=== PATIENT | female | born 1990 | race Caucasian/White ===

== ENCOUNTER → 2021-12-29 12:25 | Outpatient (CLI) | payer BC, SELFPAY ==
--- NOTE | ~2021-12-29 | US_ITS ---
EXAMINATION: US transvaginal DATE: 12/29/2021 13:05 INDICATION: Pelvic pain Comparison:No prior studies for comparison. TECHNIQUE: Multiple transabdominal and endovaginal sonographic images of the pelvis performed. FINDINGS: The uterus measures 7.2 x 3.4 x 4.2 cm. There is an IUD in the endometrium. Endometrium kunal sures 7 mm. The right ovary measures 6.8 x 4.8 x 5.4 cm and the left ovary measures 3 x 1.5 x 2.4 cm. In the righ t ovary there is a 6.2 x 4.3 x 4.7 cm cyst. There are small follicles in each ovary. Normal doppler s ignal in both ovaries. There is no free fluid in the pelvis. There are no abnormal masses seen on either side. IMPRESSION: 1. Right ovarian cyst measuring 6.2 cm. Reviewed, dictated and finalized at location A.
== END ==
PROVIDERS: PCP Nurse Practitioner; Visit Provider Nurse Practitioner
DX: R10.2 Pelvic and perineal pain (principal); N83.201 Unspecified ovarian cyst, right side
CPT/HCPCS: 76830

== ENCOUNTER → 2022-02-13 09:33 | Outpatient (CLI) | payer BC, SELFPAY ==
--- NOTE | ~2022-02-13 | US_ITS ---
EXAMINATION: US transvaginal DATE: 02/13/2022 10:07 INDICATION: Follow-up right ovarian cyst Comparison:Ultrasound dated 12/29/2021 TECHNIQUE: Multiple transabdominal and endovaginal sonographic images of the pelvis performed. FINDINGS: The uterus measures 8.4 x 3.9 x 4.9 cm. There is a slightly hyperechoic mass at the fundus of the uterus measuring 2.2 x 1.9 x 2.1 cm, consistent with a uterine fibroid. There is an IUD in the endometrium. The endometrial complex measures 7 mm. The right ovary measures 3.7 x 2 x 3.5 cm and the left ovary measures 5.3 x 4.4 x 6.1 cm. Interval re solution of right ovarian cyst since prior examination. There is a new complicated cyst of the left o vary containing low level internal echoes along the lateral margin. This cyst measures 4.4 x 4.9 x 4. 2 cm. Normal doppler signal in both ovaries. There is no free fluid in the pelvis. There are no abnormal masses seen on either side. IMPRESSION: 1. New complicated left ovarian cyst measuring 4.9 cm maximum dimension. 2: Uterine fibroid measuring 2.2 cm maximum dimension. Reviewed, dictated and finalized at location A. [employer]ICAL ENGINEERING TECHNICIAN
== END ==
PROVIDERS: PCP Obstetrics & Gynecology Gynecology; Visit Provider Obstetrics & Gynecology Gynecology
DX: N83.201 Unspecified ovarian cyst, right side (principal); N83.202 Unspecified ovarian cyst, left side; D25.9 Leiomyoma of uterus, unspecified
CPT/HCPCS: 76830

== ENCOUNTER → 2022-09-30 09:07 | Outpatient (CLI) | payer BC, SELFPAY ==
--- NOTE | ~2022-09-30 | US_ITS ---
EXAMINATION: US pelvic complete DATE: 09/30/2022 09:33 INDICATION: Left ovarian cyst. TECHNIQUE: Multiple transabdominal sonographic images of the pelvis were obtained. COMPARISON: Ultrasound 02/13/2022 FINDINGS: The uterus measures 8.5 x 3.3 x 4.2 cm. There is no free fluid in the pelvis. The endometrial complex measures 4 mm in thickness. There is a 2.1 cm mural fibroid. There is an intrauterine device in expe cted position. The right ovary measures 3.6 x 2.0 x 2.9 cm. The left ovary measures 2.6 x 2.2 x 2.0 c m. There is normal vascular flow in the ovaries. IMPRESSION: 1. Normal ovaries. 2. Intrauterine device in expected position. 3. Uterine fibroid. Reviewed, dictated and finalized at location E.
== END ==
PROVIDERS: PCP Obstetrics & Gynecology Gynecology; Visit Provider Obstetrics & Gynecology Gynecology
DX: N83.202 Unspecified ovarian cyst, left side (principal); D25.9 Leiomyoma of uterus, unspecified; Z97.5 Presence of (intrauterine) contraceptive device
CPT/HCPCS: 76856

== ENCOUNTER 2024-05-07 07:52 | Outpatient (CLI) | payer OTHER, SELFPAY ==
--- NOTE | 2024-05-12 13:58 | P.SLEEP_ITS ---
Sleep Study - Home Unattended Date of Study: 05/07/24 Ordering Provider: Edilberto Valdez MD Interpreting Provider: Carol Mcmillan, DO Home Sleep Study Type: Watch PAT Height: 1.65 m Weight: 88.451 kg Body Mass Index: 32.4 Neck Circumference (inches): 15 [place]: 11 Reason for Sleep Study Daytime hypersomnia Sleep History The patient is a 33-year-old female that had a sleep study ordered by her primary care physician for evaluation of sleep apnea. The patient admits to snoring loudly, excessive daytime sleepiness, interruptions in breathing while asleep and trouble maintaining sleep. She does choke or gasp at night. She denies having trouble breathing on her back. She does have morning headaches. She does have a dry or sore mouth / throat in the morning. She does have nocturnal heartburn. She denies nocturia. She denies having difficulty falling asleep. She does have difficulty returning to sleep if she wakes up throughout the night. She denies hypnotic or sedative use. She denies feeling anxious about sleep. She does feel tired or sleepy during the day. She does feel tired in the morning. She does have the urge to fall asleep during the day. She denies feeling drowsy while driving. He denies sleep paralysis, cataplexy and hypnagogic/ hypnopompic hallucinations. She denies clenching or grinding her teeth. She denies kicking or jerking her legs excessively. She denies having a restless feeling in her legs. She goes to bed at 10:00 p.m. on work days and at 10:30 p.m. on her days off. It takes her 45 minutes to fall asleep on her work days and 30 minutes on her days off. She gets 5 hours of sleep on her work days and 8 hours of sleep on her days off. Her sleep is a little more restorative on her days off. She denies taking any planned naps. She denies dream enactment behavior. She denies sleep walking. She consumes 3-4 cups of caffeinated beverage per day. She consumes 1 alcoholic beverage 1-2 nights per week. She denies tobacco use. She denies exercising on a regular basis. [facility] Past Medical History Medical History On correction drug therapy Hypersomnolence Encounter to establish care BMI 32.0-32.9,adult Family History Family History Father Cerebrovascular accident Brain tumor Social History Social History Smoking status: Former smoker Second hand tobacco smoke exposure: No Do You Feel Safe in your Home?: Yes Lack of Transportation: No Lack of Food: Never True Current Housing: I Have Housing Concerned About Future Housing: No Difficulty Paying Gas/Electric Bills: No Difficulty Paying for Meds: No Currently Unemployed: No Difficulty w/ Childcare or Family Care: No Additional living arrangements comments: significant other Occupation/Education: occupation Gender identity (if verbalized by the patient): Female Medications Home Medications ?Medication ?Instructions ?Recorded ?Confirmed ?Type zolpidem 10 mg tablet 10 mg PO QHS insomnia #2 tabs 04/17/24 04/17/24 Rx cholecalciferol (vitamin D3) 1,250 See Rx Instructions .Route 04/22/24 Rx mcg (50,000 unit) capsule .COMPLEX #10 caps cholecalciferol (vitamin D3) 50 50 mcg PO DAILY 04/22/24 History mcg (2,000 unit) capsule Sleep Procedure The sleep study was completed using [employer] a technically adequate device with seven channels: peripheral arterial tone, actigraphy, body position, snore, respiratory movement, pulse oximetry, sleep staging, and heart rate. Prior to using the device, the patient received verbal and written instructions for its application and was provided with the help desk phone number for additional telephonic instruction with 24-hour availability of qualified personnel to answer questions. The study was scored using CMS guidelines. Sleep Architecture The total recording time is 8 hrs, 7 min. The total sleep time is 7 hrs, 51 min. Sleep latency is 5 minutes. REM latency is minutes. The patient had 4 episodes of waking. Sleep architecture shows % deep sleep, % light sleep, and (as % Total Sleep Time) showed NREM (Light %; Deep %), and a % stage REM. The patient spent 77.9% of total sleep time in the supine position. Sleep efficiency was 96.71. Respiratory Analysis The overall AHI (pAHI 3%:) is 60.0. The central AHI is 1.6. The AHI was N/A in NREM and N/A in REM sleep. The AHI was 59.1 in Supine and 63.1 in Non-supine sleep. Percent of Mauro Hernández respirations is 0.0. Oximetry Data The oxygen desaturation index (EVA 4%:) is 42.7. The mean saturation is 93%, and the lowest saturation is 84%. Time spent with saturation < 88% is 5.7 minutes. Snoring Profile Snoring average intensity is 41 dB. The patient snored above 45 decibels for 33.6 minutes, 7.1% of sleep time. Cardiac Profile The average pulse rate is 87 beats per minutes. The lowest pulse rate is 55 bpm. The highest pulse rate reported is 121 bpm. Atrial fibrillation was not detected. Premature beats occur 0.3 per minute. Assessment and Plan Assessment and Plan (1) [place] (obstructive sleep apnea): Code(s): G47.33 - Obstructive sleep apnea (adult) (pediatric) Status: Acute Assessment and Plan: The patient had an overall AHI of 44.4 with desaturation down to 84%. This is consistent with severe sleep apnea. I recommend the patient have a CPAP titration study with the use of a hypnotic (Lunesta 2-3 mg or Ambien 5-10 mg) to ensure we obtain enough sleep data and find an optimal pressure setting. Data The data obtained during this sleep study is adequate for interpretation. Certification This sleep study has been reviewed by a board certified sleep medicine physician.
[2024-05-12 13:59] VITALS: BMI 32.4
== END 2024-05-12 13:20 | disposition home or self-care (01) ==
LOC: ANHCSM 07:53
PROVIDERS: Visit Provider Internal Medicine
DX: G47.33 Obstructive sleep apnea (adult) (pediatric) (principal); G47.00 Insomnia, unspecified
CPT/HCPCS: 95800

== ENCOUNTER 2024-07-08 08:47 | Outpatient (CLI) | payer OTHER, SELFPAY ==
[2024-08-04 15:45] VITALS: BMI 32.4
--- NOTE | 2024-08-04 15:45 | P.SLEEP_ITS ---
Sleep Study Date of Study: 07/08/24 Ordering Provider: Edilberto Valdez MD Interpreting Physician: Carol Mcmillan DO Sleep Study Type: CPAP Titration Height: 1.65 m Weight: 88.451 kg Body Mass Index: 32.4 Neck Circumference (inches): 15 [place]: 11 Reason for Sleep Study WatchPAT home sleep test on 05/07/2024 showed an overall AHI of 44.4 with desaturation down to 84%. Sleep History The patient is a 33-year-old female that had a sleep study ordered by her primary care physician for evaluation of sleep apnea. The patient admits to snoring loudly, excessive daytime sleepiness, interruptions in breathing while asleep and trouble maintaining sleep. She does choke or gasp at night. She denies having trouble breathing on her back. She does have morning headaches. She does have a dry or sore mouth / throat in the morning. She does have nocturnal heartburn. She denies nocturia. She denies having difficulty falling asleep. She does have difficulty returning to sleep if she wakes up throughout the night. She denies hypnotic or sedative use. She denies feeling anxious about sleep. She does feel tired or sleepy during the day. She does feel tired in the morning. She does have the urge to fall asleep during the day. She denies feeling drowsy while driving. He denies sleep paralysis, cataplexy and hypnagogic/ hypnopompic hallucinations. She denies clenching or grinding her teeth. She denies kicking or jerking her legs excessively. She denies having a restless feeling in her legs. She goes to bed at 10:00 p.m. on work days and at 10:30 p.m. on her days off. It takes her 45 minutes to fall asleep on her work days and 30 minutes on her days off. She gets 5 hours of sleep on her work days and 8 hours of sleep on her days off. Her sleep is a little more restorative on her days off. She denies taking any planned naps. She denies dream enactment behavior. She denies sleep walking. She consumes 3-4 cups of caffeinated beverage per day. She consumes 1 alcoholic beverage 1-2 nights per week. She denies tobacco use. She denies exercising on a regular basis. [facility]PLACED BY [facility] Past Medical History Medical History On technician terminal and repeater drug therapy Hypersomnolence Encounter to establish care BMI 32.0-32.9,adult Family History Family History Father Cerebrovascular accident Brain tumor Social History Social History Smoking status: Former smoker Second hand tobacco smoke exposure: No Do You Feel Safe in your Home?: Yes Lack of Transportation: No Lack of Food: Never True Current Housing: I Have Housing Concerned About Future Housing: No Difficulty Paying Gas/Electric Bills: No Difficulty Paying for Meds: No Currently Unemployed: No Difficulty w/ Childcare or Family Care: No Additional living arrangements comments: significant other Occupation/Education: occupation Gender identity (if verbalized by the patient): Female Medications Home Medications Medication Instructions Recorded Confirmed Type zolpidem 10 mg tablet 10 mg PO QHS insomnia #2 tabs 04/17/24 04/17/24 Rx cholecalciferol (vitamin D3) 1,250 See Rx Instructions .Route 04/22/24 Rx mcg (50,000 unit) capsule .COMPLEX #10 caps cholecalciferol (vitamin D3) 50 50 mcg PO DAILY 04/22/24 History mcg (2,000 unit) capsule Sleep Procedure A full night CPAP Titration using the [employer] multi-channel system recorded the standard physiologic parameters including EEG, EOG, submentalis EMG, anterior tibialis EMG, EKG, body position, nasal and oral airflow using nasal pressure sensor and thermistor. Respiratory parameters of chest and abdominal movements were recorded with Respiratory Inductance Plethysmography belts. Oxygen saturation was recorded by pulse oximetry. Video monitoring was also performed. Sleep stages, periodic limb movements, and EEG arousals were scored in 30 second epochs according to the criteria of the AASM Scoring Manual. The Apnea-Hypopnea Index was calculated using CMS guidelines for definition of hypopnea with 4% O2 desaturations while scoring respiratory events. Sleep Architecture The total recording time was 420.9 minutes. The total sleep time was 411.5 minutes. Sleep latency was 0.7 minutes. REM latency was 158.5 minutes. Sleep efficiency was 97.8%. The patient had 7 awakenings for an awakening index of 1.0. Wake after Sleep Onset time was 8.5 minutes. The patient spent 4.5 minutes, 1.1% of total sleep time in Stage N1. The patient spent 225.0 minutes, 54.7% in Stage N2. The patient spent 100.5 minutes, 24.4% in Stage N3. The patient spent 81.5 minutes, 19.8% in Stage REM. Respiratory Analysis The patient had 15 hypopneas and 4 central apneas for an overall Apnea Hypopnea Index of 2.8 events per hour. The REM Apnea Hypopnea Index was 0.7. The NREM Apnea Hypopnea Index was 3.3. The patient had a Central Apnea Hypopnea Index of 0.6. There was no evidence of Mauro-Hernánedz Respirations. The patient was started on CPAP 5 cm H2O and titrated to CPAP 10 cm H2O due to central apneas and hypopneas. The patient was able to fall asleep starting on CPAP 5 cm H2O. The patient was able to achieve REM sleep starting on CPAP 10 cm H2O. The patient was able to achieve a residual AHI less than 5 with both NREM and REM sleep on the final pressure setting. On CPAP 10 cm H2O, the patient spent 239.5 minutes in NREM and 81.5 minutes in REM with 3 central apneas and 1 hypopnea, resulting in an AHI of 0.7. The patient had a sleep efficiency of 97.7% on this pressure setting. Arousals There were 32 total arousals for an arousal index of 4.7. There were 24 spontaneous arousals for an index of 3.5. There were 3 arousals due to respiratory events for an index of 0.4. There were 0 arousals due to periodic limb movements for an index of 0. There were 5 arousals due to isolated limb movements for an index of 0.7. Periodic Limb Movements The patient had 12 isolated limb movements with an index of 1.7. The patient had 0 periodic limb movements with index of 0. Patient had a total of 12 limb movements with a total limb movement index of 1.7. Oximetry Data The patient had an average oxygen saturation of 94.4% in sleep with a minimum oxygen saturation of 86.0% and a maximum oxygen saturation of 98.0%. The patient had 20 oxygen desaturations that were 4% or greater resulting in an Oxygen Desaturation Index of 2.9. The patient spent 1.6 minutes, 0.4% of total sleep time with an oxygen saturation below 88%. Snoring Profile Mild to moderate snoring was present in the beginning of the study. The snoring resolved once the patient was titrated to 10 cm H2O. Cardiac Profile The EKG showed normal sinus rhythm. No arrhythmias or premature beats were seen. The patient had an average pulse rate of 72.6 bpm with a minimum pulse rate of 56.0 bpm and a maximum pulse rate of 108.0 bpm. EEG Profile No signs of seizure activity seen. Assessment and Plan Assessment and Plan (1) [place] (obstructive sleep apnea): Code(s): G47.33 - Obstructive sleep apnea (adult) (pediatric) Status: Acute Assessment and Plan: The patient was started on CPAP 5 cm H2O and titrated to CPAP 10 cm H2O due to central apneas and hypopneas. The patient's sleep apnea resolved on the final pressure setting. I recommend that the patient be prescribed CPAP 10 cm H2O, size medium Resmed AirTouch F20 full face mask, CPAP filters/tubing and heated humidity. This should be used with all episodes of sleep. Compliance should be reviewed within 31-90 days of starting therapy for usage greater than 4 hours per night greater than 70% of the nights. The patient should be asked about symptoms such as excessive daytime sleepiness, quality of sleep, decreased nocturia, increased mental functioning such as memory, mood, and concentration. Data The data obtained during this sleep study is adequate for interpretation. Certification This sleep study has been reviewed by a board certified sleep medicine physician.
== END 2024-07-09 05:39 | disposition home or self-care (01) ==
PROVIDERS: PCP Internal Medicine; Visit Provider Internal Medicine
DX: G47.33 Obstructive sleep apnea (adult) (pediatric) (principal)
CPT/HCPCS: 95811